=== PATIENT | female | born 1975 | race Caucasian/White ===

== ENCOUNTER → 2020-07-23 | Outpatient (CLI) | payer BC, SELFPAY ==
--- NOTE | 2020-07-23 09:35 | RAD_ITS ---
PROCEDURE: ESOPHAGRAM - UPPER GASTROINTESTINAL STUDY DATE OF EXAMINATION: 07/23/2020 INDICATION: Female, 45 years old. Mid abdominal pain and gastroesophageal reflux. PHYSICIAN: Gary Baldwin M.D. FLUOROSCOPY TIME (if supplied): (0:36) minutes/seconds. 16 images were obtained. TECHNIQUE: The esophagus, stomach, duodenum and proximal small bowel were evaluated initially with Gastrografin and then with barium. The contrast material passes freely through the structures with no intraluminal filling defect identified. There is no mucosal irregularity. There is no leakage of contrast outside the gastrointestinal system. The proximal small bowel is not dilated and there is a rapid transient time for the contrast to pass through the gastrointestinal tract. RAD/Upper GI Dual Contrast IMPRESSION: 1. The esophagus, stomach, duodenum and proximal small bowel have a normal appearance. 2. No radiopaque filling defect is seen in the area evaluated. 3. The small bowel is not dilated and there is a rapid transit time for contrast to move through the bowel confirming no bowel obstruction. Electronically Signed: Gary Baldwin, at 11:12 EDT , Service support ,
== END | disposition home or self-care (01) ==
PROVIDERS: PCP Physician Assistant; Referring Provider Nurse Practitioner Adult Health; Visit Provider Nurse Practitioner Adult Health
DX: R14.0 Abdominal distension (gaseous) (principal); R10.11 Right upper quadrant pain; R10.12 Left upper quadrant pain
CPT/HCPCS: 74246

== ENCOUNTER 2025-05-29 12:41 | Emergency (ER) | payer BC, SELFPAY ==
[2025-05-29 12:42] VITALS: BP 138/90; PULSE 99; RESP 18; TEMP 37; O2SAT 99; BMI 21.4
== END 2025-05-29 14:45 | disposition left against medical advice (07) ==
LOC: ED 14:46
PROVIDERS: PCP Physician Assistant
DX: Z53.21 Procedure and treatment not carried out due to patient leaving prior to being seen by health care provider (principal)